=== PATIENT | female | born 1955 | race Caucasian/White ===

== ENCOUNTER 2018-06-19 17:59 | Emergency (ER) | payer OTHER ==
[~2018-06-19] VITALS: Ht 144.8 cm; Wt 56.2 kg
[2018-06-19] MEDS ORDERED: BACTRIM DS TAB1 EACH PO (20:36)
== END 2018-06-19 20:45 | disposition home or self-care (01) ==
LOC: ER 17:59
DX: L02.512 Cutaneous abscess of left hand (principal)

== ENCOUNTER 2023-02-06 10:26 | Emergency (ER) | payer OTHER ==
[~2023-02-06] VITALS: Ht 149.9 cm; Wt 56.7 kg
[~2023-02-06 10:26] MED LIST: BACTRIM DS TAB1 EACH PO
== END 2023-02-06 14:01 | disposition home or self-care (01) ==
LOC: ER 10:26
DX: J40 Bronchitis, not specified as acute or chronic (principal)

== ENCOUNTER → 2023-03-15 | Emergency (ER) | payer OTHER ==
[~2023-03-15] VITALS: Ht 149.9 cm; Wt 54.9 kg
[~2023-03-15] MED LIST changes: +[UNRECOGNIZED DRUG - OTHER]
== END | disposition home or self-care (01) ==
LOC: ER 19:23 → CPU-OBS 19:27
DX: R07.9 Chest pain, unspecified (principal); E78.00 Pure hypercholesterolemia, unspecified